=== PATIENT | female | born 1955 | race African-American/Black ===

== ENCOUNTER 2018-06-26 11:34 | Emergency (ER) | payer OTHER ==
[2018-06-26] MEDS: DEXAMETHASONE 10 MG/ML 1 ML INJ IM (13:24)
[2018-06-26] MEDS: ALBUTEROL 0.083% (NEB) 2.5 MG/3 ML AMP HHN (14:00)
[2018-06-26] MEDS: LIDOCAINE 1% (MDV) 20 ML INJ SC (14:21)
[2018-06-26] MEDS: CEFTRIAXONE 1 GM INJ IM (14:21)
== END 2018-06-26 15:26 | disposition home or self-care (01) ==
LOC: FTE 15:26
DX: J18.1 Lobar pneumonia, unspecified organism (principal); J45.909 Unspecified asthma, uncomplicated; Z87.891 Personal history of nicotine dependence
CPT/HCPCS: 71045; 94664; 96372; 99284-25